=== PATIENT | male | born 1985 | race Caucasian/White ===

== ENCOUNTER 2016-11-14 11:20 | Outpatient (CLI) | payer MEDICARE ==
[2016-07-31 19:42] VITALS: BP 92/58
[2016-11-14 11:35] LABS: BASOPHILS % 0.2 (0.0-1.5); EOSINOPHILS % 1.5 % (0.0-6.8); LYMPHOCYTES # 2.9 # k/uL (0.6-4.0); MEAN CORPUSCULAR HEMOGLOBIN 29.5 pg (28.0-34.0); MONOCYTES # 0.4 # k/uL (0.0-0.9); MONOCYTES % 3.7 % (0.0-11.0); NEUTROPHILS # 6.9 # k/uL (1.4-7.7)
[2016-11-14 12:31] LABS: eGFR (African) > 60; eGFR (Non-African) > 60
--- NOTE | 2016-11-14 18:49 | Diagnostic Imaging Report ---
GUILLERMO HERNANDES [facility] [address] [facility] [address] [address] Report Submission Date: Nov 14, 2016 2:41:15 PM [employer]AREHOUSE [employer]ION [employer]IST Patient Study Name: JASMIN FERNANDEZ Date: Nov 14, 2016 11:40:52 AM WAREHOUSE DISTRIBUTION SPECIALIST Modality Type: CT\SR Gender: M Description: CT ABD & PELVIS W/ CON : 87 Institution: [facility] Physician: GUILLERMO HERNANDES CT of the abdomen and pelvis with contrast Clinical history: Right lower quadrant abdominal pain for about a month. Contrast administered: 94 ml of Omnipaque. Technique: CT of the abdomen and pelvis is performed with intravenous infusion of contrast. Sagittal and coronal reconstructions are performed by the technologist. Findings: There is minimal dependent atelectasis in the lung bases. The liver and spleen demonstrate normal attenuation without focal defect. The gallbladder is normally distended. There is no pancreatic or adrenal abnormality. The kidneys demonstrate symmetric enhancement. Bilateral punctate intrarenal calculi are demonstrated. There is no evident ureteral or bladder calculus and no hydronephrosis. The appendix is visualized and is within normal limits. The structures related to the gastrointestinal tract are unremarkable. There is no retroperitoneal mass or significant adenopathy. There is no free fluid in the pelvis or abdomen. Impression: 1. Bilateral intrarenal calculi. 2. Negative appendix. 3. No acute intra-abdominal changes. Electronically signed on Nov 14, 2016 2:41:15 PM WAREHOUSE DISTRIBUTION SPECIALIST by: Jarad DENNEY
== END 2016-11-14 11:21 ==
LOC: RAD 11:20
PROVIDERS: ATTEND Physician Assistant
DX: R10.31 Right lower quadrant pain (principal)
CPT/HCPCS: 36415; 74177; 80053; 85025; Q9966

== ENCOUNTER 2017-04-17 13:10 | Emergency (ER) | payer MEDICARE, OTHER ==
--- NOTE | 2017-04-17 13:18 | ED Physician Documentation ---
General Adult - HISTORIAN Historian: patient - HPI Stated Complaint: R hip pain Chief Complaint: General Adult Onset: days ago (7) Timing: still present Severity: moderate Further Comments: yes (Pt is a 32 yo male who fell a week ago and has been having severe pain in his R hip. Pt had R hip surgery at [facility] in 2015. 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 Pt fell from standing and has been having pain with weight bearing in the R hip, radiating to his groin. Pt has been having spasming in his R thigh.) - ROS CONST: no problems EYES/ENT: other CVS/RESP: none GI/: none MS/SKIN/LYMPH: other (R hip pain & spasm) - PAST HX Past History: other (seizure d/o) Allergies/Adverse Reactions: Allergies Allergy/AdvReac Type Severity Reaction Status Date / Time ketorolac tromethamine Allergy Intermediate Hives Verified 04/17/17 13:28 [From Toradol] tramadol Allergy Verified 04/17/17 13:28 Home Medications: Ambulatory Orders Medication Instructions Recorded Levetiracetam [Keppra] 1,500 mg PO BID 07/16/13 Lamotrigine 200 mg PO DAILY 30 Days 08/08/15 Aspirin [Shanthi] 325 mg PO DAILY 07/22/16 - SOCIAL HX Smoking History: cigarettes - FAMILY HX Family History: No - VITAL SIGNS Vital Signs: Vital Signs Temp Pulse Resp BP Pulse Ox 92/58 07/31/16 18:00 - REVIEWED ASSESSMENTS Nursing Assessment Reviewed: Yes Vitals Reviewed: Yes Progress - Progress Progress: [place] (5/325) 2 tabs po R leg spasm Diazepam 5 mg IM pt state pain, spasm unimproved, rates pain 10/10 Fentanyl 50 mcg IV X-ray R hip: Cortical irregularities involving the right hip specifically along the compressive aspect. Patient reportedly had right hip surgery in June 2016. Correlation with previous exams would be beneficial determine if this represents residual/sequela of that event versus a new injury/fracture. Assessment for whether not there is marrow edema or subtle fracture can be obtained with MRI if clinically warranted. Transfer to [facility]. Dr. Rainey, orthopedics for MRI, ortho eval. General Adult Physical Exam - PHYSICAL EXAM GENERAL APPEARANCE: moderate distress NECK: normal inspection, supple RESPIRATORY: no resp distress, chest non-tender, breath sounds normal CVS: reg rate & rhythm, heart sounds normal ABDOMEN: soft, normal bowel sounds SKIN: warm/dry, normal color EXTREMITIES: other (R hip tenderness. No foreshortening or rotation. R thigh muscle spasm) NEURO: oriented X3, motor nml, sensation nml, other (R thigh muscle spasm) Discharge Clincal Impression: fall, R hip pain Referrals: Walter Dallas MD [Primary Care Provider] - Home Medications: Ambulatory Orders Levetiracetam [Keppra] 1,500 mg PO BID 07/16/13 Lamotrigine 200 mg PO DAILY 30 Days 08/08/15 Aspirin [Shanthi] 325 mg PO DAILY 07/22/16 Condition: Stable Disposition: 02 XFER SHT-TRM HOSP Decision to Admit: NO Decision Time: 16:00
[2017-04-17] MEDS ORDERED: HYDROcodone /APAP 5/325 1 EACH TABLET PO ONE (13:28)
[2017-04-17] MEDS ORDERED: DIAZEPAM 5 MG/ML DISP.SYRIN IM ONE (13:55)
[2017-04-17 14:26] LABS: BASOPHILS % 0.4 (0.0-1.5); EOSINOPHILS % 1.7 % (0.0-6.8); MEAN CORPUSCULAR HEMOGLOBIN 30.1 pg (28.0-34.0); MEAN CORPUSCULAR VOLUME 86.9 fl (80.0-100.0); NEUTROPHILS # 8.1 # k/uL (1.4-7.7)
[2017-04-17 14:41] LABS: eGFR (African) > 60; eGFR (Non-African) > 60
[2017-04-17] MEDS ORDERED: fentaNYL CITRATE/PF 100 MCG/ 2ML AMP IVP ONE (15:37)
[2017-04-17 16:29] VITALS: BP 141/64
[2017-04-17] MEDS ORDERED: LORazepam 2 MG/ML VIAL ONE (16:32)
[2017-04-17] MEDS ORDERED: LORazepam 2 MG/ML VIAL IVP ONE (16:45)
--- NOTE | 2017-04-17 18:57 | Diagnostic Imaging Report ---
RASHAWN DANG [facility] [address] [facility] [address] [place] [address]. [id number] Report Submission Date: Apr 17, 2017 3:04:38 PM CDT Patient Study Name: JASMIN FERNANDEZ Date: Apr 17, 2017 1:36:26 PM CDT Modality Type: CR Gender: M Description: PELVIS : 87 Institution: [facility] [place] [facility] Physician: RASHAWN DANG Examination: Plain film pelvis History: Fall Comparison exams: None provided Findings: 3 views of the pelvis and hip demonstrates thickening of the inferior margin of the right femoral neck. Lucency traversing this region. Right femoral head and remainder of the cortex is without abnormality. Superior and inferior pubic rami and iliac wing are within normal limits. No left hip cortical irregularity. Left lower pelvic calcification. Impression: Cortical irregularities involving the right hip specifically along the compressive aspect. Patient reportedly had right hip surgery in June 2016. Correlation with previous exams would be beneficial determine if this represents residual/sequela of that event versus a new injury/fracture. Assessment for whether not there is marrow edema or subtle fracture can be obtained with MRI if clinically warranted. Electronically signed on Apr 17, 2017 3:04:38 PM CDT by: Anders DENNEY
== END 2017-04-17 16:43 | disposition short-term general hospital (02) ==
LOC: ED 13:10
DX: M25.551 Pain in right hip (principal); W19.XXXA Unspecified fall, initial encounter; Y93.9 Activity, unspecified; Y99.9 Unspecified external cause status
CPT/HCPCS: 73502; 80053; 85025; A9270; J2060; J3010; J3360; 96372; 96374; 99284; S1016

== ENCOUNTER 2017-04-26 15:04 | Emergency (ER) | payer MEDICARE, OTHER ==
--- NOTE | 2017-04-26 15:09 | ED Physician Documentation ---
General Adult - HISTORIAN Historian: patient - HPI Stated Complaint: seizure Chief Complaint: General Adult Onset: hours Timing: still present Severity: moderate Further Comments: yes (Pt is a 32 yo male with hx seizure d/o. Pt's mother states that pt was standing and stiffened and then fell face first onto the floor. Pt c/o neck pain after the episode, R hip pain, and R rib pain from falling) - ROS CONST: other (possible seizure) EYES/ENT: none CVS/RESP: none GI/: none MS/SKIN/LYMPH: none NEURO/PSYCH: other (c/o seizure) - PAST HX Past History: other (seizure d/o, depression, IBS, ) Surgeries/Procedures: other (ACL repair, R hip surgery) Allergies/Adverse Reactions: Allergies Allergy/AdvReac Type Severity Reaction Status Date / Time ketorolac tromethamine Allergy Intermediate Hives Verified 04/26/17 15:36 [From Toradol] tramadol Allergy Verified 04/26/17 15:36 Home Medications: Ambulatory Orders Medication Instructions Recorded Levetiracetam [Keppra] 1,500 mg PO BID 07/16/13 Lamotrigine 200 mg PO DAILY 30 Days 08/08/15 Aspirin [Shanthi] 325 mg PO DAILY 07/22/16 - SOCIAL HX Smoking History: cigarettes - FAMILY HX Family History: No - VITAL SIGNS Vital Signs: Vital Signs Temp Pulse Resp BP Pulse Ox 141/64 04/17/17 16:27 - REVIEWED ASSESSMENTS Nursing Assessment Reviewed: Yes Vitals Reviewed: Yes Progress - Progress Progress: Valium 5 mg IV shaking/stiffness resolved shortly after valium and pt appeared A&O shortly after (? pseudo seizure) c/o neck and R rib pain from fall. [place] (5/325) 2 tablets in ER x-ray R hip: neg x-ray c-spine: neg x-ray R ribs: neg Rx [place] (5/325) Take one or two tablets by mouthe every 4 to 6 hrs as needed for moderate to severe pain. Disp 10. General Adult Physical Exam - PHYSICAL EXAM GENERAL APPEARANCE: moderate distress EENT: eye inspection normal, ENT inspection normal, pharynx normal NECK: normal inspection, other (c/o tenderness upper c-spine, midline) RESPIRATORY: no resp distress, breath sounds normal, other (tenderness R chest wall, no crepitus) CVS: reg rate & rhythm, heart sounds normal ABDOMEN: soft, no organomegaly, normal bowel sounds BACK: normal inspection, no CVA tenderness SKIN: warm/dry, normal color EXTREMITIES: normal range of motion, no evidence of injury, other (c/o R hip tenderness, FROM) NEURO: CN's nml as tested, motor nml, sensation nml (Pt appeared A&O after "seizure" passed), other Discharge Clincal Impression: seizure, fall, musculoskeletal pain Referrals: Walter Dallas MD [Primary Care Provider] - Home Medications: Ambulatory Orders Levetiracetam [Keppra] 1,500 mg PO BID 07/16/13 Lamotrigine 200 mg PO DAILY 30 Days 08/08/15 Aspirin [Shanthi] 325 mg PO DAILY 07/22/16 Condition: Stable Disposition: 01 HOME, SELF-CARE Decision to Admit: NO Decision Time: 18:23
[2017-04-26] MEDS: DIAZEPAM 5 MG/ML DISP.SYRIN IVP ONE (15:16)
[2017-04-26] MEDS: 0.9 % SODIUM CHLORIDE 1,000 ML IV ONE (15:35)
[2017-04-26 16:08] LABS: BASOPHILS % 0.5 (0.0-1.5); EOSINOPHILS % 0.6 % (0.0-6.8); MEAN CORPUSCULAR HEMOGLOBIN 30.4 pg (28.0-34.0); MEAN CORPUSCULAR VOLUME 84.5 fl (80.0-100.0); MONOCYTES % 5.8 % (0.0-11.0)
[2017-04-26 16:19] LABS: eGFR (African) > 60; eGFR (Non-African) > 60
[2017-04-26] MEDS: HYDROcodone /APAP 5/325 1 EACH TABLET PO ONE ×2 (18:07→18:38)
--- NOTE | 2017-04-26 18:33 | Diagnostic Imaging Report ---
RASHAWN DANG~ [facility] [address] [facility] [address] [address] ~ ~ ~ ~ Report Submission Date: Apr 26, 2017 5:42:56 PM CDT Patient ~ Study Name: JASMIN FERNANDEZ ~ Date: Apr 26, 2017 4:30:11 PM CDT ~ Modality Type: CR Gender: M ~ Description: SPINE : 87 ~ Institution: [facility] Physician: RASHAWN DANG ~ ~ ~ ~ 5 views of the cervical spine Clinical history: Neck pain Findings: The alignment cervical spine is normal to C6. Cannot evaluate below C6. The open mouth view demonstrates normal alignment of the lateral masses of C1 and C2. The odontoid is intact. No fractures are identified. Impression: Negative study. If concern for acute cervical spine trauma, CT cervical spine is recommended. Recommended. ~ Electronically signed on Apr 26, 2017 5:42:56 PM CDT by: Deyvi DENNEY
--- NOTE | 2017-04-26 18:34 | Diagnostic Imaging Report ---
RASHAWN DANG~ [facility] [address] [facility] [address] [place], [place]. [address] ~ ~ ~ ~ Report Submission Date: Apr 26, 2017 6:01:55 PM CDT Patient ~ Study Name: JASMIN FERNANDEZ ~ Date: Apr 26, 2017 4:44:36 PM CDT ~ Modality Type: CR Gender: M ~ Description: PELVIS : 87 ~ Institution: [facility] Physician: RASHAWN DANG ~ ~ ~ ~ Pelvis and right hip CLINICAL HISTORY: ~ Fall. ~Right hip pain. ~ FINDINGS: ~ Examination of the pelvis in AP and right hip in AP and cross-table lateral views fails to demonstrate evidence of fracture. ~Sacroiliac joints are symmetric. ~There is no lytic or blastic lesion. IMPRESSION: ~ No fracture. ~ Electronically signed on Apr 26, 2017 6:01:55 PM CDT by: Jarad DENNEY
--- NOTE | 2017-04-26 18:35 | Diagnostic Imaging Report ---
RASHAWN DANG~ [facility] [address] [facility] [address] [place] [address]. [address] ~ ~ ~ ~ Report Submission Date: Apr 26, 2017 6:02:42 PM CDT Patient ~ Study Name: JASMIN FERNANDEZ ~ Date: Apr 26, 2017 4:49:59 PM CDT ~ Modality Type: CR Gender: M ~ Description: CHEST : 87 ~ Institution: [facility] Physician: RASHAWN DANG ~ ~ ~ ~ Chest and right ribs CLINICAL HISTORY: ~ Fall. ~Right rib pain. FINDINGS: ~ Examination of the chest single AP view demonstrates the lungs to be clear. ~ Cardiovascular and mediastinal silhouettes are within normal limits. ~ Examination of right rib cage in AP, oblique and coned-down views of the lower ribs fails to demonstrate evidence of fracture. ~There is no pneumothorax. IMPRESSION: ~ Negative study. ~ Electronically signed on Apr 26, 2017 6:02:42 PM CDT by: Jarad DENNEY
[2017-04-26 19:19] VITALS: BP 114/71
[2017-04-27 05:46] LABS: APPEARANCE,URINE CLEAR (CLEAR); COLOR,URINE YELLOW (YELLOW); OCCULT BLOOD,URINE TRACE-INTACT (NEGATIVE); UROBILINOGEN URINE 0.2 Eu (0.2-1.0)
== END 2017-04-26 18:43 | disposition home or self-care (01) ==
LOC: ED 15:04
DX: R56.9 Unspecified convulsions (principal); M79.1 Myalgia
CPT/HCPCS: 71101; 72040; 73502; 80053; 81002; 85025; A9270; J3360; J7030; L0120; 96361; 96374; 99283

== ENCOUNTER 2017-07-17 17:03 | Emergency (ER) | payer MEDICARE, OTHER ==
[2017-07-17 17:41] LABS: BASOPHILS % 0.6 (0.0-1.5); EOSINOPHILS % 1.3 % (0.0-6.8); MEAN CORPUSCULAR HEMOGLOBIN 29.6 pg (28.0-34.0); MEAN CORPUSCULAR VOLUME 84.9 fl (80.0-100.0); NEUTROPHILS # 5.4 # k/uL (1.4-7.7)
[2017-07-17 17:58] VITALS: BP 126/86
[2017-07-17 17:59] LABS: eGFR (African) > 60; eGFR (Non-African) > 60
[2017-07-17 18:14] LABS: APPEARANCE,URINE Clear (CLEAR); COLOR,URINE Yellow (YELLOW); OCCULT BLOOD,URINE Trace-intact (NEGATIVE)
[2017-07-17 18:21] LABS: AMORPHOUS SEDIMENT,UR FEW (NEGATIVE)
[2017-07-17 18:22] LABS: AMPHETAMINE NEGATIVE ng/mL (<1000); BARBITURATES NEGATIVE ng/mL (<300); CANNABINOIDS NON NEGATIVE ng/mL (< 50); COCAINE NEGATIVE ng/mL (<300); METHAMPHETAMINE NEGATIVE ng/mL (<1000); METHYLENEDIOXYMETHAMPHETAMINE NEGATIVE ng/mL (<500); OPIATES NEGATIVE ng/mL (<300)
--- NOTE | 2017-07-17 20:21 | ED Physician Documentation ---
General Adult - HISTORIAN Historian: patient, paramedics - HPI Stated Complaint: Seizure like activity [employer], brought in by [facility] Chief Complaint: General Adult Further Comments: yes (32 year old male patient brought in by EMS with reported "seizures". EMS states they picked patient up at his home, reported "seizures" for 1 hour. Patient yelling and cursing at EMS on arrival. RR 28-30, anxious. ) - ROS CONST: denies: no problems - PAST HX Past History: other (seizures) Allergies/Adverse Reactions: Allergies Allergy/AdvReac Type Severity Reaction Status Date / Time ketorolac tromethamine Allergy Intermediate Hives Verified 07/17/17 18:01 [From Toradol] tramadol Allergy Verified 07/17/17 18:01 Home Medications: Ambulatory Orders Medication Instructions Recorded Levetiracetam [Keppra] 1,500 mg PO BID 07/16/13 Aspirin [Shanthi] 325 mg PO DAILY 07/22/16 - SOCIAL HX Smoking History: cigarettes - FAMILY HX Family History: No - VITAL SIGNS Vital Signs: Vital Signs Temp Pulse Resp BP Pulse Ox 91 H 20 126/86 95 07/17/17 17:04 07/17/17 17:04 07/17/17 17:04 07/17/17 17:04 - REVIEWED ASSESSMENTS Nursing Assessment Reviewed: Yes Vitals Reviewed: Yes Progress - Progress Progress: Encouraged patient to relax on arrival, deep breathing. VS stable on arrival. Patient poor historian, will not answer all History and ROS questions. Will reassess. EMS report patient is well known to them. No seizure activity visualized by staff while patient in ER. 1820 - Provider to patient room for assessment and review of lab. Patient eloped. Multiple critical patients in ER. ED Results Lab/Radiology - Lab Results Lab Results: Lab Results 07/17/17 07/17/17 07/17/17 18:10 18:10 17:30 WBC RBC Hgb Hct MCV MCH MCHC RDW Plt Count Neut % (Auto) Lymph % (Auto) [place] % (Auto) Eos % (Auto) Baso % (Auto) Neut # (Auto) Lymph # (Auto) [place] # (Auto) Eos # (Auto) Baso # (Auto) Reactive Lymphs % Reactive Lymphs # Sodium 137 mmol/L mmol/L (137-145) Potassium 3.6 mmol/L mmol/L (3.5-5.1) Chloride 103 mmol/L mmol/L (98-107) Carbon Dioxide 23 mmol/L mmol/L (22-30) BUN 11 mg/dL mg/dL (9-20) Creatinine 1.10 mg/dL mg/dL (0.66-1.25) Estimated Creat Clear 134 Est GFR ( Amer) > 60 (60 - ) Est GFR (Non-Af Amer) > 60 (60 - ) Glucose 86 mg/dL mg/dL (74-106) Calcium 9.4 mg/dL mg/dL (8.4-10.2) Total Bilirubin 0.3 mg/dL mg/dL (0.2-1.3) AST 25 U/L U/L (15-46) ALT 47 U/L U/L (13-69) Alkaline Phosphatase 70 U/L U/L (38-126) Total Protein 7.4 g/dL g/dL (6.3-8.2) Albumin 4.4 g/dL g/dL (3.5-5.0) Urine Color Yellow (YELLOW) Urine Appearance Clear (CLEAR) Urine pH 6.0 (5.0 - 8.0) Ur Specific [place] >=1.030 H (1.010-1.030) Urine Protein 1+ mg/dL H mg/dL (NEGATIVE) Urine Ketones Trace mg/dL mg/dL (NEGATIVE) Urine Occult Blood Trace-intact (NEGATIVE) Urine Nitrite Negative (NEGATIVE) Urine Bilirubin 1+ H (NEGATIVE) Urine Urobilinogen 1.0 Eu Eu (0.2-1.0) Ur Leukocyte Esterase Negative (NEGATIVE) Urine RBC 2-5 H (0-2 HPF) Urine WBC 0-2 (0-5 HPF) Ur Squamous Epith Cells Few (NEG-FEW) Amorphous Sediment Few H (NEGATIVE) Urine Mucus Present H (NEGATIVE) Urine Glucose Negative mg/dL mg/dL (NEGATIVE) Opiates Screen Negative ng/mL ng/mL (<300) Oxycodone Screen Non negative ng/mL H ng/mL (<100) Methadone Screen Negative ng/mL ng/mL (<300) POC Urine Barbiturates Negative ng/mL ng/mL (<300) Tricyclic Antidepress Non negative ng/mL H ng/mL (<300) Phencyclidine Screen Non negative ng/mL H ng/mL (<25) Amphetamines Screen Negative ng/mL ng/mL (<1000) POC Ur Methamphetamine Negative ng/mL ng/mL (<1000) MDMA Negative ng/mL ng/mL (<500) Benzodiazepines Screen Negative ng/mL ng/mL (<300) Cocaine Screen Negative ng/mL ng/mL (<300) U Cannabinoids Screen Non negative ng/mL H ng/mL (< 50) 07/17/17 17:30 WBC 8.90 K/ul K/ul (4.00-12.00) RBC 5.20 M/ul M/ul (3.90-5.20) Hgb 15.4 g/dL g/dL (12.0-18.0) Hct 44.1 % % (37.0-53.0) MCV 84.9 fl fl (80.0-100.0) MCH 29.6 pg pg (28.0-34.0) MCHC 34.9 g/dL g/dL (30.0-36.0) RDW 12.2 % % (11.3-14.3) Plt Count 245 K/mm3 K/mm3 (130-400) Neut % (Auto) 59.9 % % (39.0-79.0) Lymph % (Auto) 31.5 % % (16.0-50.0) [place] % (Auto) 5.0 % % (0.0-11.0) Eos % (Auto) 1.3 % % (0.0-6.8) Baso % (Auto) 0.6 (0.0-1.5) Neut # (Auto) 5.4 # k/uL # k/uL (1.4-7.7) Lymph # (Auto) 2.8 # k/uL # k/uL (0.6-4.0) [place] # (Auto) 0.4 # k/uL # k/uL (0.0-0.9) Eos # (Auto) 0.1 # k/uL # k/uL (0.0-0.6) Baso # (Auto) 0.0 # k/uL # k/uL (0.0-0.5) Reactive Lymphs % 1.7 % % (0.0-5.0) Reactive Lymphs # 0.2 # k/uL # k/uL (0.0-0.8) Sodium Potassium Chloride Carbon Dioxide BUN Creatinine Estimated Creat Clear Est GFR ( Amer) Est GFR (Non-Af Amer) Glucose Calcium Total Bilirubin AST ALT Alkaline Phosphatase Total Protein Albumin Urine Color Urine Appearance Urine pH Ur Specific [place] Urine Protein Urine Ketones Urine Occult Blood Urine Nitrite Urine Bilirubin Urine Urobilinogen Ur Leukocyte Esterase Urine RBC Urine WBC Ur Squamous Epith Cells Amorphous Sediment Urine Mucus Urine Glucose Opiates Screen Oxycodone Screen Methadone Screen POC Urine Barbiturates Tricyclic Antidepress Phencyclidine Screen Amphetamines Screen POC Ur Methamphetamine MDMA Benzodiazepines Screen Cocaine Screen U Cannabinoids Screen - Orders Orders: ED Orders Category Date Time Status CBC/PLATELET/DIFF Stat Lab 07/17/17 17:30 Completed CMP Stat Lab 07/17/17 17:30 Completed OPIATES,QUANT Routine Lab 07/17/17 18:20 Received UA W/MICRO IF INDICATED Stat Lab 07/17/17 18:10 Completed Urine drug screen [DRUG SCREEN URINE MEDICAL ONLY] Stat Lab 07/17/17 18:10 Completed General Adult Physical Exam - PHYSICAL EXAM GENERAL APPEARANCE: anxious EENT: eye inspection normal RESPIRATORY: no resp distress, breath sounds normal CVS: reg rate & rhythm EXTREMITIES: non-tender, normal range of motion, no evidence of injury NEURO: oriented X3, motor nml, sensation nml, mood/affect nml (anxious) Discharge Clincal Impression: Left against medical advice Referrals: Walter Dallas MD [Primary Care Provider] - 2 Days Disposition: AGAINST MEDICAL ADVICE Decision to Admit: NO Decision Time: 18:20
== END 2017-07-17 18:20 | disposition left against medical advice (07) ==
LOC: ED 17:03
DX: F41.9 Anxiety disorder, unspecified (principal); Z53.21 Procedure and treatment not carried out due to patient leaving prior to being seen by health care provider
CPT/HCPCS: 80053; 81002; 85025; G0481; 80377; 99283; S1016

== ENCOUNTER 2018-07-15 12:58 | Emergency (ER) | payer MEDICARE, OTHER ==
--- NOTE | 2018-07-15 14:14 | ED Physician Documentation ---
Lower Extremity Injury - HISTORIAN Historian: patient - HPI Stated Complaint: Right Foot Injury Chief Complaint: Foot Injury Additional Information: Cleaning out a trailer after tenants left. Picked up a piece of plywood w/o knowing it had bricks glued to the underside. Dropped board because of its weight and it hit the top of his left foot. He was wearing flip flops. Occurred 1 1/2 hours prior to exam. Very painful to stand on it. brought him to ER. Has had ice to the area while in ER. No other modifying factors or associated signs. - ROS CONST: no problems - PAST HX Past History: other (osteochondromas of hips) Allergies/Adverse Reactions: Allergies Allergy/AdvReac Type Severity Reaction Status Date / Time acetaminophen Allergy Unverified 10/22/12 16:39 hydrocodone bitartrate Allergy Unverified 10/22/12 16:39 tramadol Allergy Verified 07/17/17 18:01 Home Medications: Ambulatory Orders Medication Instructions Recorded Levetiracetam [Keppra] 1,500 mg PO BID 07/16/13 Aspirin [Shanthi] 325 mg PO DAILY 07/22/16 - SOCIAL HX Smoking History: cigarettes ( 1 PPD) - FAMILY HX Family History: no significant history - VITAL SIGNS Vital Signs: Vital Signs Temp Pulse Resp BP Pulse Ox 98 F 80 18 120/88 07/15/18 12:58 07/15/18 12:58 07/15/18 12:58 07/15/18 12:58 - REVIEWED ASSESSMENTS Nursing Assessment Reviewed: Yes Vitals Reviewed: Yes Progress - Progress Progress: Report Submission Date: Jul 15, 2018 1:52:09 PM CDT Patient Study Name: JASMIN FERNANDEZ Date: Jul 15, 2018 1:12:33 PM CDT Modality Type: DX Gender: M Description: LOWER EXTREMITY : 87 Institution: [facility] Physician: LEA FRANCO - ER Right foot History: Dropped a cement block on his foot Three views of the right foot were obtained which demonstrate normal alignment and normal mineralization. There is no evidence for acute fracture or dislocation. Impression: No evidence for acute fracture or dislocation. Electronically signed on Jul 15, 2018 1:52:09 PM CDT by: Jodi Gagnon ED Results Lab/Radiology - Orders Orders: ED Orders Category Date Time Status FOOT 3 VIEWS OR MORE [RAD] Stat Exams 07/15/18 Ordered Ketorolac Tromethamine [Toradol] Med 07/15/18 14:27 Once 30 mg IVP NOW ONE Orphenadrine Citrate [Norflex] Med 07/15/18 14:27 Once 60 mg IV NOW ONE Lower Extremities Injury Phy - Physical Exam General Appearance: alert, mild distress Hips: bilateral hip: no evidence of injury Legs: bilateral: no evidence of injury Knees: bilateral: no evidence of injury Ankle: bilateral: no evidence of injury, abrasions/laceration Foot: right foot: abrasions/lacerations (superficial abrasion at right medial ankle, over 1st MTP. No swellingl PT and DP 2+. No bruising. ), limited range of motion (2/2 pain), left foot: normal inspection Gait: limited by pain, unable to bear weight Neuro/Vascular/Tendon: no vascular compromise, motor nml, sensation nml. No: abnml color Head/ENT: nml inspection Neck/Back: nml inspection Resp/CVS: no resp. distress Discharge Clincal Impression: Contusion of right foot Qualifiers: Encounter type: initial encounter Qualified Code(s): S90.31XA - Contusion of right foot, initial encounter Referrals: Walter Dallas MD [Primary Care Provider] - 2 Days Additional Instructions: Keep the sore foot elevated to minimize swelling and discomfort. Ice to the sore area for 30 minutes of each hour you are awake for the next 3 days. You can take 1,000 mg tylenol every 8 hours if needed for discomfort. You can also take 600 mg ibuprofen every 8 hours with food if needed for discomfort. Condition: Good Disposition: 01 HOME, SELF-CARE Decision to Admit: NO Decision Time: 14:37
[2018-07-15] MEDS: ORPHENADRINE CITRATE 60 MG/2ML IV ONE (14:32)
[2018-07-15] MEDS: KETOROLAC TROMETHAMINE 30 MG/1ML VIAL IVP ONE (14:33)
[2018-07-15 14:50] VITALS: BP 118/68
--- NOTE | 2018-07-16 08:45 | Diagnostic Imaging Report ---
LEA FRANCO [facility] [address] [facility] [address] Report Submission Date: Jul 15, 2018 1:52:09 PM CDT Patient Study Name: JASMIN FERNANDEZ Date: Jul 15, 2018 1:12:33 PM CDT Modality Type: DX Gender: M Description: LOWER EXTREMITY : 87 Institution: [facility] Physician: LEA FRANCO Right foot History: Dropped a cement block on his foot Three views of the right foot were obtained which demonstrate normal alignment and normal mineralization. There is no evidence for acute fracture or dislocation. Impression: No evidence for acute fracture or dislocation. Electronically signed on Jul 15, 2018 1:52:09 PM CDT by: Jodi DENNEY
== END 2018-07-15 14:45 | disposition home or self-care (01) ==
LOC: ED 12:58
DX: S90.31XA Contusion of right foot, initial encounter (principal); W23.1XXA Caught, crushed, jammed, or pinched between stationary objects, initial encounter; Y92.9 Unspecified place or not applicable; Y93.E9 Activity, other interior property and clothing maintenance; Y99.9 Unspecified external cause status
CPT/HCPCS: 73630; J1885; J2360; 96374; 96375; 99283

== ENCOUNTER → 2019-03-07 | Emergency (ER) | payer MEDICARE, OTHER | LOC: ED 12:35 | DX: M79.605 Pain in left leg (principal); M25.531 Pain in right wrist | CPT/HCPCS: 73110; 73501; 73552; 99281; 99282; S1016 ==